=== PATIENT | male | born 1965 | race Caucasian/White ===

== ENCOUNTER 2019-02-11 20:39 | Emergency (ER) | payer MEDICAID ==
[~2019-02-11] VITALS: Ht 177.8 cm; Wt 73.9 kg
[2019-02-11 20:43] VITALS: Ht 177.8 cm; Wt 73.9 kg
[2019-02-11 22:30] VITALS: BP 115/89
== END 2019-02-11 22:30 | disposition home or self-care (01) ==
LOC: ED 20:39
DX: K40.90 Unilateral inguinal hernia, without obstruction or gangrene, not specified as recurrent (principal); F17.210 Nicotine dependence, cigarettes, uncomplicated; Z86.19 Personal history of other infectious and parasitic diseases